=== PATIENT | male | born 1955 | race Caucasian/White ===

== ENCOUNTER 2016-12-14 06:17 | Inpatient (IN) | payer MEDICARE, MEDICAID ==
[2016-12-01 11:10] VITALS: Ht 177.8 cm; Wt 146.7 kg
[2016-12-01 11:11] VITALS: BP_SYST 130; RESP 20; TEMP 97
[2016-12-14] VITALS (22 sets, daily range): BP systolic 92–146; RESP 18–22; TEMP 97.2–98.3
[~2016-12-14] VITALS: Ht 177.8 cm; Wt 146.7 kg
[2016-12-14] MEDS ORDERED: ROPIVACAINE 0.5% 139 MG, EPINEPHrine 1:1,000 0.2 MG, KETOROLAC INJ 30 MG, MORPHINE 10 MG SUBQ ONE ×4 (06:25)
[2016-12-14] MEDS ORDERED: CEFAZOLIN 3,000 MG in SODIUM CHLORIDE 0.9% 100 ML IV ONE (06:25)
[2016-12-14] MEDS ORDERED: MIDAZOLAM 2 MG/2 ML INJ IV ONE ×2 (07:30→08:05)
[2016-12-14] MEDS ORDERED: GLYCOPYRROLATE 0.2 MG/ML VIAL IV ONE ×2 (07:30→10:30)
[2016-12-14] MEDS ORDERED: LACT RINGERS 1,000 ML IV SCH ×2 (07:30→10:00)
[2016-12-14] MEDS ORDERED: LIDOCAINE 1% BUFFERED 1 ML SYR INTRADERM PRN (07:30)
[2016-12-14] MEDS ORDERED: MEPERIDINE 25 MG/ML IV ONE ×2 (07:40→08:10)
[2016-12-14] MEDS ORDERED: MIDAZOLAM 2 MG/2 ML INJ ONE ×2 (07:57)
[2016-12-14] MEDS ORDERED: ONDANSETRON 4 MG VIAL IV PRN ×2 (08:40→10:00)
[2016-12-14] MEDS ORDERED: MORPHINE 4 MG/ML SYR IV PRN ×2 (08:40→10:00)
[2016-12-14] MEDS ORDERED: MORPHINE 2 MG/ML SYR IV PRN ×2 (08:40→10:00)
[2016-12-14] MEDS ORDERED: DILAUDID 1 MG/ML AMP IV PRN (08:40)
[2016-12-14] MEDS ORDERED: MEPERIDINE 25 MG/ML IV PRN (08:40)
[2016-12-14] MEDS ORDERED: OXYCODONE 5 MG TAB PO PRN (08:40)
[2016-12-14] MEDS ORDERED: SCOPOLAMINE PATCH TRANSDERM SCH (09:00)
[2016-12-14] MEDS ORDERED: DIPHENHYDRAMINE 25 MG CAP PO PRN (10:00)
[2016-12-14] MEDS ORDERED: TEMAZEPAM 15 MG CAP PO PRN (10:00)
[2016-12-14] MEDS ORDERED: CEFAZOLIN 2,000 MG in SODIUM CHLORIDE 0.9% 100 ML IV SCH (10:00)
[2016-12-14] MEDS ORDERED: ACETAMINOPHEN 325 MG TAB PO PRN (10:00)
[2016-12-14] MEDS ORDERED: PHENYLEPHRINE 10 MG/ML VIAL IV ONE (10:30)
[2016-12-14] MEDS ORDERED: PROPOFOL 20 ML PER ML IV ONE (10:30)
[2016-12-14] MEDS ORDERED: NEOSTIGMINE 10 MG/10 ML VIAL IV ONE (10:30)
[2016-12-14] MEDS ORDERED: METOPROLOL 5 MG/5 ML VIAL IV ONE (10:30)
[2016-12-14] MEDS ORDERED: FENTANYL 100 MCG/2 ML AMP IV ONE (10:30)
[2016-12-14] MEDS ORDERED: ROCURONIUM 50 MG VIAL IV ONE (10:30)
[2016-12-14] MEDS ORDERED: BUPIVACAINE 0.5% PF 30 ML EPIDURAL ONE (10:35)
[2016-12-14] MEDS ORDERED: BUPIVACAINE 0.5% PF 10ML EPIDURAL ONE (10:35)
[2016-12-14] MEDS ORDERED: BACITRACIN 50,000 UNITS INJ IRRIG ONE (10:41)
[2016-12-14] MEDS: DOCUSATE SOD 100 MG CAP PO SCH ×2 (11:15→21:11)
[2016-12-14] MEDS: MAG HYDROX 30 ML UDC PO SCH (11:16)
[2016-12-14] MEDS ORDERED: MORPHINE 2 MG/ML SYR ONE (11:17)
[2016-12-14] MEDS: KETOROLAC 30 MG/ML VIAL IV PRN (11:36)
[2016-12-14] MEDS: METOPROLOL XL 50 MG TAB PO SCH ×2 (14:11→16:08)
[2016-12-14] MEDS: CEFAZOLIN 2,000 MG in SODIUM CHLORIDE 0.9% 100 ML IV SCH ×2 (14:30→21:11)
[2016-12-14] MEDS: NEB-XOPENEX 0.63 MG/3 ML INH SCH ×3 (15:00→22:51)
[2016-12-14] MEDS: DILAUDID 1 MG/ML AMP IV PRN (16:04)
[2016-12-14] MEDS: BUSPIRONE HCL 15 MG TAB PO SCH ×2 (16:07→21:10)
[2016-12-14] MEDS: PANTOPRAZOLE 40 MG TAB PO SCH ×2 (16:08→21:11)
[2016-12-14] MEDS: GABAPENTIN 600 MG TAB PO SCH ×2 (16:08→21:11)
[2016-12-14] MEDS: ALPRAZOLAM 1 MG TAB PO SCH ×2 (16:10→21:11)
[2016-12-14] MEDS: POLYETHYLENE GLYCOL 17 GM PACKET PO SCH (17:56)
[2016-12-14] MEDS: QUEtiapine 100 MG TAB PO SCH (21:10)
[2016-12-14] MEDS: SENNA 8.6 MG TAB PO SCH (21:11)
[2016-12-15] MEDS: CEFAZOLIN 2,000 MG in SODIUM CHLORIDE 0.9% 100 ML IV SCH ×2 (02:00→08:11)
[2016-12-15] MEDS: KETOROLAC 30 MG/ML VIAL IV PRN ×2 (02:57→11:26)
[2016-12-15] MEDS: FONDAPARINUX 2.5 MG SYR SUBQ SCH (06:00)
[2016-12-15] MEDS: NEB-XOPENEX 0.63 MG/3 ML INH SCH ×4 (07:38→22:19)
[2016-12-15 08:09] VITALS: BP_SYST 101; RESP 16; TEMP 98.2
[2016-12-15] MEDS: METOPROLOL XL 50 MG TAB PO SCH (08:12)
[2016-12-15] MEDS: PANTOPRAZOLE 40 MG TAB PO SCH ×2 (08:12→21:51)
[2016-12-15] MEDS: SENNA 8.6 MG TAB PO SCH ×2 (08:12→21:53)
[2016-12-15] MEDS: DOCUSATE SOD 100 MG CAP PO SCH ×2 (08:12→21:52)
[2016-12-15] MEDS: GABAPENTIN 600 MG TAB PO SCH ×3 (08:12→21:52)
[2016-12-15] MEDS: BUSPIRONE HCL 15 MG TAB PO SCH ×3 (08:12→21:52)
[2016-12-15] MEDS: ALPRAZOLAM 1 MG TAB PO SCH ×3 (08:13→21:52)
[2016-12-15] MEDS: MAG HYDROX 30 ML UDC PO SCH (08:13)
[2016-12-15] MEDS: POLYETHYLENE GLYCOL 17 GM PACKET PO SCH (08:13)
[2016-12-15 11:00] VITALS: BP_SYST 131; RESP 18; TEMP 98
[2016-12-15] MEDS: Hydrocodone/APAP 10/325 MG TAB PO PRN ×3 (12:34→21:54)
[2016-12-15 15:43] VITALS: BP_SYST 116; RESP 18; TEMP 97.8
[2016-12-15] MEDS ORDERED: FLEET ENEMA 132 ML BTL RECTAL PRN (17:55)
[2016-12-15] MEDS ORDERED: BISACODYL 10 MG SUPP RECTAL PRN (17:55)
[2016-12-15 19:26] VITALS: BP_SYST 112; RESP 16; TEMP 97.7
[2016-12-15] MEDS: DILAUDID 1 MG/ML AMP IV PRN ×2 (19:47→21:54)
[2016-12-15] MEDS ORDERED: MISSING DOSE XX ONE (20:30)
[2016-12-15] MEDS: QUEtiapine 100 MG TAB PO SCH (21:52)
[2016-12-15] MEDS: CYCLOBENZAPRINE 10 MG TAB PO PRN (21:52)
[2016-12-15 22:36] VITALS: BP_SYST 119; RESP 18; TEMP 98.3
[2016-12-16] MEDS: DILAUDID 1 MG/ML AMP IV PRN ×5 (00:33→11:50)
[2016-12-16] MEDS: KETOROLAC 30 MG/ML VIAL IV PRN ×2 (00:35→08:27)
[2016-12-16] MEDS: Hydrocodone/APAP 10/325 MG TAB PO PRN ×2 (03:14→10:00)
[2016-12-16 03:19] VITALS: BP_SYST 130; RESP 16; TEMP 97.9
[2016-12-16] MEDS: FONDAPARINUX 2.5 MG SYR SUBQ SCH (06:07)
[2016-12-16] MEDS: NEB-XOPENEX 0.63 MG/3 ML INH SCH ×2 (06:18→14:05)
[2016-12-16 07:31] VITALS: BP_SYST 110; RESP 16; TEMP 98
[2016-12-16] MEDS: GABAPENTIN 600 MG TAB PO SCH (08:24)
[2016-12-16] MEDS: BUSPIRONE HCL 15 MG TAB PO SCH (08:24)
[2016-12-16] MEDS: CYCLOBENZAPRINE 10 MG TAB PO PRN (08:25)
[2016-12-16] MEDS: ALPRAZOLAM 1 MG TAB PO SCH (08:25)
[2016-12-16] MEDS: DOCUSATE SOD 100 MG CAP PO SCH (08:26)
[2016-12-16] MEDS: SENNA 8.6 MG TAB PO SCH (08:26)
[2016-12-16] MEDS: METOPROLOL XL 50 MG TAB PO SCH (08:26)
[2016-12-16] MEDS: PANTOPRAZOLE 40 MG TAB PO SCH (09:00)
[2016-12-16] MEDS: MAG HYDROX 30 ML UDC PO SCH (09:00)
[2016-12-16] MEDS: POLYETHYLENE GLYCOL 17 GM PACKET PO SCH (09:00)
[2016-12-16 10:47] VITALS: BP_SYST 110; RESP 16; TEMP 98
[2016-12-16 11:55] VITALS: BP_SYST 119; RESP 18; TEMP 98.2
[2016-12-16 12:30] VITALS: RESP 18
[2016-12-17] MEDS ORDERED: REMOVE SCOPALAMINE PATCH XX SCH (09:00)
== END 2016-12-16 14:00 | disposition home health service (06) | DRG 470 ==
LOC: ENRESERVDT → ENRESERVTM → SDS 06:17 → ENPENDDIS 06:17 → 2NO 10:35
PROVIDERS: ADMIT Internal Medicine; ATTEND Internal Medicine
PROC: 3E0T3CZ (ICD-10-PCS; 2016-12-14)
PROC: 0SRD0J9 Replacement of Left Knee Joint with Synthetic Substitute, Cemented, Open Approach (ICD-10-PCS; principal; 2016-12-14 07:48)
DX: M17.12 Unilateral primary osteoarthritis, left knee (principal); Z68.42 Body mass index [BMI] 45.0-49.9, adult; I10 Essential (primary) hypertension; K21.9 Gastro-esophageal reflux disease without esophagitis; J44.9 Chronic obstructive pulmonary disease, unspecified; F31.9 Bipolar disorder, unspecified; F17.210 Nicotine dependence, cigarettes, uncomplicated; E66.01 Morbid (severe) obesity due to excess calories
CPT/HCPCS: 80048; 85014; 85018; 85025; 86850; 86900; 86901; 94640; 94762; 94799